=== PATIENT | female | born 1945 | race Caucasian/White ===

== ENCOUNTER 2016-11-06 21:27 | Observation (INO) | payer MEDICARE ==
[~2016-11-06] VITALS: Ht 170.2 cm; Wt 70.3 kg
--- NOTE | ~2016-11-06 | HP ---
PATIENT: RACHEL OMYA MEDICAL RECORD: [id number] ACCOUNT: [id number] LOCATION:[address] : 45 ADMISSION DATE: 11/06/16 HISTORY AND PHYSICAL EXAMINATION ADMITTING DIAGNOSES: 1. Chest pain. 2. Normal cardiac catheterization 1 year ago. HISTORY OF PRESENT ILLNESS: Mrs. Moya presents with chest pain, after mowing a lawn, in her epigastric area. She does have GERD as well. Her troponin is normal. EKG is normal. PHYSICAL EXAMINATION: GENERAL APPEARANCE: Well-nourished, well-developed, appears stated age. Level of distress, comfortable. PSYCHIATRIC: Mental status, alert, normal affect. Orientation, oriented to time, place and person. EYES: Lids and conjunctiva, noninjected. No discharge, no pallor. ENT: Lips, teeth, gums, normal dentition. Oropharynx, no cyanosis, no pallor. NECK: Carotid arteries, bilateral normal upstroke, no bruits, no thrills. JUGULAR VEINS: No jugular venous pressure or distention. CERVICAL LYMPH NODES: Nontender, nonenlarged. THYROID: Not enlarged. Nontender. No nodules. LUNGS: Respiratory effort, unlabored. CHEST: Normal curvature. No thoracic deformity. No chest wall tenderness. Percussion, resonant. Auscultation, clear. No wheezes, no rales, no rhonchi. CARDIOVASCULAR: Precordial exam, nondisplaced. No heaves or pericardial thrills. Rate and rhythm, regular. Heart sounds, normal S1, normal S2. No S3, no gallop, no rub. Systolic murmur, not heard. Diastolic murmur, not heard. EXTREMITIES: No cyanosis, no edema. Peripheral pulses, full and equal in all extremities, except as noted. No bruits appreciated. ABDOMEN: Soft, nondistended. Normal aorta. No bruit. Nontender. No masses. Liver, nontender, no hepatomegaly. Spleen, nontender, no splenomegaly. MUSCULOSKELETAL: No joint tenderness. No joint swelling. No erythema. NEUROLOGICAL: Normal gait, normal strength, normal tone. SKIN: Warm and dry. REVIEW OF SYSTEMS: The patient reports easy bruising but reports no swollen glands. The patient reports no fever, no night sweats, no significant weight gain, no significant weight loss. No significant exercise tolerance. The patient reports no dry eyes, no irritation, no vision change. Patient reports no difficulty hearing and no ear pain. Patient reports no frequent nose bleeds or nose and sinus problems. Patient reports on arm pain on exertion. No shortness of breath while lying down. No history of heart murmur. Patient reports no cough, no wheezing or coughing up blood. Patient reports no abdominal pain, no vomiting. Normal appetite. No diarrhea and not vomiting blood. No nausea and no constipation. Patient reports no incontinence. No difficulty urinating. No hematuria. No increased frequency. Patient reports no muscle aches. No weakness, no arthralgias, no back pain. No swelling of the extremities. Patient reports no abnormal mole, no jaundice, no rashes. Reports no loss of consciousness. No weakness and no numbness. No seizures, dizziness, or headaches. The patient reports no depression, no sleep disturbance, feeling safe in a relationship and no alcohol abuse. Patient reports on fatigue. Reports no runny nose or sinus pressure. No itching, no hives, and no frequent HISTORY AND PHYSICAL [id number] RACHEL MOYA sneezing. OVERALL IMPRESSION: Epigastric pain, most likely gastroesophageal reflux disease. No changes on the EKG and normal cardiac catheterization a year ago with low likelihood of hemodynamically significant coronary artery disease. We will continue to treat from a GI perspective. TRANSINT:[id number] Voice Confirmation ID: [id number] DOCUMENT ID: [id number] CHANTELL KITCHEN MD CC: [id number] DICTATION DATE: 11/07/16 1150 FIBERGLASSER: 11/07/16 1507 DIS IN 11/07/16 [facility] [address] [place] [address]
--- NOTE | ~2016-11-06 | DS ---
PATIENT:RACHEL MOYA :45 MEDICAL RECORD: [id number] DISCHARGE SUMMARY ADMISSION DATE: 11/06/16 DISCHARGE DATE: 11/07/16 DISCHARGE DIAGNOSES: 1. Gastroesophageal reflux disease. 2. Chest pain. HOSPITAL COURSE: Mrs. Moya presented with GERD and chest pain. Her cardiac enzymes were normal. Her EKGs are with no changes. She underwent cardiac catheterization 1 year ago with no significant disease. She was discharged home to followup with Dr. Sandoval for continued noncardiac chest pain treatment. TRANSINT:[id number] Voice Confirmation ID: [id number] DOCUMENT ID: [id number] CHANTELL KITCHEN MD CC: [id number] DICTATION DATE: 11/07/16 1150 SUPERVISOR ENGRAVING: 11/08/16 0255 DIS IN 11/07/16 [place] [id number] [place] [id number]
[~2016-11-06 21:27] MED LIST: OMEPRAZOLE20 M1 PO
[2016-11-06 21:46] LABS: BASOPHILS 0.1 % (0-2); EOSINOPHILS 0.3 % (0-7); HEMATOCRIT 35.3 % (36.0-48.0); HEMOGLOBIN 12.1 g/dL (12-16); IMMATURE GRANULOCYTES 0.3 % (0-5); LYMPHOCYTES 19.2 % (15-50); MCH 31.1 pg (26.0-34.0); MCHC 34.3 g/dL (31.0-37.0); MCV 90.7 fL (80.0-100.0); MEAN PLATELET VOLUME 8.6 fL (7.4-10.4); MONOCYTES 8.9 % (2-11); NEUTROPHILS 71.2 % (40-80); PLATELET COUNT 206 10x3/uL (130-400); RBC 3.89 10x6/uL (4.00-5.40); RDW 13.2 % (11.5-14.5); WBC 9.2 10x3/uL (4.8-10.8)
[2016-11-06 22:01] LABS: ALBUMIN 3.9 g/dL (3.4-5.0); ALKALINE PHOSPHATASE 96 U/L (46-116); ALT (SGPT) 24 U/L (10-68); BILIRUBIN - TOTAL 0.29 mg/dL (0.2-1.3); CALC OSMOLALITY 280 mosm/kg (275-300); CALCIUM 9.5 mg/dL (8.5-10.1); CARBON DIOXIDE 21.5 mmol/L (21.0-32.0); CHLORIDE - SERUM 102 mmol/L (98-107); CREATININE - SERUM 1.4 mg/dL (0.6-1.3); GLUCOSE 123 mg/dL (74-106); POTASSIUM - SERUM 3.5 mmol/L (3.5-5.1); PROTEIN - SERUM 7.9 g/dL (6.4-8.2); SODIUM 139 mmol/L (136-145); UREA NITROGEN 18 mg/dL (7-18); eGFR NON AFRICAN AMERICAN 39 mL/min (90-120)
[2016-11-06 22:04] LABS: CREATINE KINASE 62 UL (21-215)
[2016-11-06 22:05] LABS: TROPONIN-I < 0.017 ng/mL (0.000-0.060)
[2016-11-07] VITALS: BP 127/71
--- NOTE | 2016-11-07 00:10 | NUR ---
70 yr old female admitted from ED accompanied by ED staff and son. Patient states she had been mowing her lawn and became "overheated", having SOB and Chest pain. Family called EMS. Patient was given ASA, 3 Nitro tabs and Zofran IV by EMS. In ED patient was given GI cocktail and nitropaste placed on chest. Has two PIV's #18 in left wrist, and #20 in left AC both are SL at this time. Is to start on NS @50ml/hr. Denies any chest pain or discomfort at this time. Alert and oriented x 4, lives alone, is ambulatory and independent with ADLs. Takes no medications at home except for over the counter PRilosec PRN. Was on oxygen in ED @2L/min but is on Room air and pulse ox 99 to 100%. Also was given 500ml bolus in ED. Denies any medical issues. Settled into room, son wants to stay with patient over the night. Patient is on Observation Status.
[2016-11-07 00:24] VITALS: BP 127/71; Ht 170.2 cm; Wt 70.3 kg
--- NOTE | 2016-11-07 01:18 | NUR ---
12 Lead EKG done, IV fluids infusing as ordered. Patient's son will remain with patient in room tonight. Patient denies chest pain or discomfort. Will obtain bus driver/monitor to place on patient.
[2016-11-07 04:00] VITALS: BP 129/63
--- NOTE | 2016-11-07 06:32 | NUR ---
Patient has been assisted up to BR x 2, slept intermittently. IV infusing well. Son in chair at bedside. Patient did have slight indigestion but has no orders for any medication for dyspepsia. Given fluids, symptoms lessened at this time. Denies chest pain.
--- NOTE | 2016-11-07 06:41 | NUR ---
Telemetry on, HR 55/min currently, Rhythm = SB.
--- NOTE | 2016-11-07 07:48 | NUR ---
AM ROUNDS - PT IS AWAKE IN BED. MONITOR SHOWING SB, HR 58. BED AT LOWEST POSITION. CALL ELIZABETH IN USE/REACH. SIDE RAILS UP X2. IV TO LEFT WRIST, SL AND LEFT AC, NS AT 50CC/HR. SON AT BEDSIDE. NO NEEDS AT THIS TIME. WILL CONTINUE TO MONITOR
[2016-11-07 08:00] VITALS: BP 130/89
--- NOTE | 2016-11-07 11:54 | NUR ---
D/C - WRITTEN AND VERBAL D/C INSTRUCTIONS GIVEN TO PT AND FAMILY. IV TO LEFT AC, DC, CATH TIP INTACT. IV TO LEFT FA, D/C, CATH TIP INTACT. PT TOLERATED WELL. PT IS GETTING DRESSES AND WILL NOTIFY ME WHEN SHE IS READY TO LEAVE. HEART MONITOR D/C AND RETURNED TO PROFESSOR OF NURSING. WILL CONTINUE TO MONITOR
--- NOTE | 2016-11-07 12:38 | NUR ---
PT LEFT FLLOR VIA WHEELCHAIR WITH VOLUNTEER AND FAMILY
== END 2016-11-07 12:40 | disposition home or self-care (01) ==
LOC: D.ER 21:27 → D.M2 22:43 → OBSVTIME 22:43 → D.M2 11-07 12:40
PROVIDERS: Emergency Medicine; ADMIT Internal Medicine Interventional Cardiology
DX: K21.9 Gastro-esophageal reflux disease without esophagitis (principal)